=== PATIENT | female | born 1960 | race African-American/Black ===

== ENCOUNTER 2017-06-14 05:11 | Inpatient (IN) | payer OTHER ==
[2017-06-09 15:51] VITALS: BMI 24.1
[2017-06-14] MEDS ORDERED: THROMBIN (BOVINE) 5,000 UNIT VIAL TP ONE (07:25)
--- NOTE | 2017-06-14 07:51 | HP ---
HISTORY OF PRESENT ILLNESS- 57yo female c/o chronic c spine pain with radiculopathy down left upper extremity extending down left flank into left low back. she has been evaluated and treated by Dr Walters and has failed conservative treatment. Patient states she saw her pcp last week for pre op clearance. PMHX: DM, asthma, Hx of DVT when 30 + years ago. Denies hx of coagulopathy, bleeding disorder, seizure, stroke or heart attack Smoking: current everyday smoker Alcohol:social Drugs: Allergies: [place], NKDA REVIEW OF SYSTEMS CONSTITUTIONAL: Absent: fever, chills, diaphoresis, generalized weakness, malaise, loss of appetite, weight change HEENT: Pt wears glasses Absent: rhinorrhea, nasal congestion, throat pain, throat swelling, difficulty swallowing, CARDIOVASCULAR: Absent: chest pain, syncope, palpitations, irregular heart rate, lightheadedness , peripheral edema RESPIRATORY: wheezing and choughing at baseline Absent: shortness of breath, orthopnea, stridor, hemoptysis GASTROINTESTINAL: Absent: abdominal pain, abdominal distension, constipation, melena, hematochezia GENITOURINARY: Absent: dysuria, frequency, urgency, hesitancy, hematuria, genital pain MUSCULOSKELETAL: c-spine pain Absent: myalgia, arthralgia, joint swelling, SKIN: Absent: rash, itching, pallor HEMATOLOGIC/IMMUNOLOGIC: Absent: easy bleeding, easy bruising, lymphadenopathy, frequent infections ENDOCRINE: DM Absent: unexplained weight gain, unexplained weight loss, heat intolerance, cold intolerance NEUROLOGIC: Absent: headache, focal weakness or paresthesias, dizziness, unsteady gait, seizure, mental status changes, bladder or bowel incontinence PSYCHIATRIC: Absent: anxiety, depression, suicidal or homicidal ideation, hallucinations. PHYSICAL EXAMINATION: Vital Signs Temperature 97.7 F 06/14/17 06:57 Pulse Rate 98 H 06/14/17 06:57 Respiratory Rate 20 06/14/17 06:57 Blood Pressure 130/80 06/14/17 06:57 O2 Sat by Pulse Oximetry (%) 99 06/14/17 06:55 GENERAL: Awake, alert, and fully oriented, in no acute distress. HEAD: Normal with no signs of trauma. EYES: Pupils equal, round and reactive to light, sclera anicteric, conjunctiva clear. No lid lag. EARS, NOSE, THROAT: Ears normal, nares patent, NECK: limited range of motio 2/2 pain, supple without lymphadenopathy, JVD, or masses. LUNGS: Breath sounds equal, with Wheezing throughout b/l moreno. No accessory muscle use. HEART: Regular rate and rhythm, normal S1 and S2 ABDOMEN: Soft, nontender, not distended, MUSCULOSKELETAL: limited ROM at shoulder 2/2 pain 5/5 strength b/l upper extremities. Spine with ttp at midline diffusely and paraveterbral tenderness throughout L>R, no step off deformity No bony deformities or tenderness. No CVA tenderness. UPPER EXTREMITIES: 2+ pulses, warm, well-perfused. No cyanosis. No clubbing. No peripheral edema. LOWER EXTREMITIES: 2+ pulses, warm, well-perfused. No calf tenderness. No peripheral edema. NEUROLOGICAL: Cranial nerves II-XII intact. Normal speech. Normal gait. PSYCHIATRIC: Cooperative. Good eye contact. Appropriate mood and affect. SKIN: Warm, dry, normal turgor, no rashes or lesions noted, normal capillary refill. ASSESSMENT/PLAN: Imp: Cervical splondylitic myelopathy Plan: Diagnosis and treatment options discussed including R/B/A of surgical and non-surgical management. The patient would like to proceed with surgical intervention at this time. Confirmed consent will be obtained at bedside by Dr Walters. Visit type - Case Type Case Type: Scheduled Admission - Emergency Emergency Visit: No - New patient This patient is new to me today: Yes Date on this admission: 06/14/17
[2017-06-14] MEDS ORDERED: MIDAZOLAM HCL 2 MG/2 ML SINGLE DOSE VIAL ONE (08:01)
[2017-06-14] MEDS ORDERED: ROCURONIUM BROMIDE 50 MG/5 ML VIAL ONE (08:02)
[2017-06-14] MEDS ORDERED: ALBUTEROL SO4 18 GM HFA INHALER IH ONE (08:03)
[2017-06-14] MEDS ORDERED: SUCCINYLCHOLINE CHLORIDE 200 MG/10 ML VIAL ONE (08:04)
[2017-06-14] MEDS ORDERED: PROPOFOL 20 ML ONE ×2 (08:05)
[2017-06-14] MEDS ORDERED: LIDOCAINE HCL/PF 2% SDV 5ML VIAL ONE (08:06)
[2017-06-14] MEDS ORDERED: ceFAZolin SODIUM 1 GM VIAL IVPB ONE (08:30)
[2017-06-14] MEDS ORDERED: DEXAMETHASONE SOD PHOSPHATE 4 MG/1 ML VIAL ONE (08:52)
[2017-06-14] MEDS ORDERED: PHENYLEPHRINE HCL 10 MG/1 ML SINGLE DOSE VIAL ONE (09:06)
[2017-06-14] MEDS ORDERED: ceFAZolin SODIUM 1 GM VIAL ONE (09:06)
[2017-06-14] MEDS ORDERED: GLYCOPYRROLATE 0.2 MG/1 ML VIAL ONE ×2 (09:06→09:33)
[2017-06-14] MEDS ORDERED: HYDROmorphone HCL/PF 1 MG/ML VIAL (FOR PYXIS CHARGING ONLY) ONE (09:07)
[2017-06-14] MEDS ORDERED: SODIUM CHLORIDE 0.9% P/F 10 ML VIAL IJ ONE (09:17)
[2017-06-14] MEDS ORDERED: NEOSTIGMINE METHYLSULFATE 0.5 MG/ML - 10 ML MDV ONE (09:31)
[2017-06-14] MEDS ORDERED: ONDANSETRON 4 MG/2 ML VIAL ONE (09:33)
[2017-06-14] MEDS ORDERED: morphine CARPU-JECT 4 MG/1 ML DISP.SYRIN IVPUSH PRN ×2 (10:05→16:29)
[2017-06-14] MEDS ORDERED: ONDANSETRON 4 MG/2 ML VIAL IVPUSH PRN (10:11)
[2017-06-14] MEDS ORDERED: oxyCODONE HCL 5 MG TABLET PO PRN ×4 (10:11→18:00)
[2017-06-14] MEDS ORDERED: LACTATED RINGERS SOLUTION 1,000 ML IV SCH (10:15)
[2017-06-14] MEDS ORDERED: HYDROmorphone HCL CARPU-JECT 2 MG/1 ML DISP.SYRIN ONE (10:29)
[2017-06-14] MEDS: HYDROmorphone HCL CARPU-JECT 1 MG/1 ML DISP.SYRIN IVPUSH PRN ×2 (10:29→10:39)
[2017-06-14] MEDS ORDERED: SODIUM CHLORIDE 1,000 ML IV SCH ×2 (10:30→16:29)
[2017-06-14] MEDS ORDERED: PATIENT'S OWN MEDICATION (NON-FORMULARY) (Oxycodone Hcl [Oxycodone Hcl] 5 MG) PO PRN (16:29)
[2017-06-14] MEDS ORDERED: CEFAZOLIN (PRE-DOCKED) 50 ML IVPB SCH (16:30)
[2017-06-14] MEDS ORDERED: INSULIN DETEMIR 100 UNITS/ML MDV SQ SCH ×2 (16:30→17:15)
[2017-06-14] MEDS ORDERED: INSULIN GLARGINE HUM REC ANLOG 16 UNIT SQ SCH (16:30)
[2017-06-14] MEDS ORDERED: ZOLPIDEM TARTRATE 5 MG TABLET PO PRN ×2 (17:06→22:00)
[2017-06-14] MEDS: CEFAZOLIN 1 GM/D5W 50 ML IVPB SCH (17:36)
[2017-06-14] MEDS ORDERED: HEPARIN NA (PORCINE) 5,000 UNITS/ML 1ML VIAL SQ SCH (18:00)
[2017-06-14] MEDS ORDERED: HYDROmorphone HCL CARPU-JECT 1 MG/1 ML DISP.SYRIN IVPB PRN (19:45)
[2017-06-14] MEDS ORDERED: INSULIN (NOVOLOG) ASPART 100 UNITS/ML 10ML VIAL ONE (21:01)
[2017-06-14] MEDS ORDERED: HYDROmorphone HCL CARPU-JECT 2 MG/1 ML DISP.SYRIN IVPB PRN (21:02)
[2017-06-14] MEDS: HEPARIN NA (PORCINE) 5,000 UNITS/ML 1ML VIAL SQ SCH (21:07)
[2017-06-14] MEDS: BUDESONIDE/FORMETEROL FUMARATE 80/4.5 mcg INHALER IH SCH (21:08)
[2017-06-14] MEDS ORDERED: PATIENT'S OWN MEDICATION (NON-FORMULARY) (Zolpidem Tartrate [Ambien] 10 MG) PO SCH (22:00)
[2017-06-14] MEDS ORDERED: BUDESONIDE/FORMETEROL FUMARATE 80/4.5 mcg INHALER IH SCH (22:00)
[2017-06-14] MEDS ORDERED: INSULIN SLIDING SCALE (NOVOLOG) 1 VIAL SQ SCH ×2 (22:00)
[2017-06-15] MEDS: CEFAZOLIN 1 GM/D5W 50 ML IVPB SCH (00:41)
[2017-06-15] MEDS: oxyCODONE HCL 5 MG TABLET PO PRN ×2 (03:02→08:04)
[2017-06-15] MEDS: HEPARIN NA (PORCINE) 5,000 UNITS/ML 1ML VIAL SQ SCH (06:00)
[2017-06-15] MEDS ORDERED: metFORMIN HCL 500 MG TABLET (FP) PO SCH ×2 (07:00→10:00)
--- NOTE | 2017-06-15 08:15 | PN ---
Progress Note (short form) - Note Progress Note: Pt tolerating regular food last pm, oob and ambulating. Pain to upper back improved and tingling in hands. Vital Signs Period Temp Pulse Resp BP Sys/Lombardo Pulse Ox Last 24 Hr 97.5 F-98.8 F 75-118 10-22 133-167/58-89 96-100 ALCON-20ml CV: RRR Lungs: CTA b/l Neck: supple, dressing c/d/i, no eechymosis or masses noted. ALCON removed intact, steri strips applied to ALCON removal site. 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 Upper extremity 5/5 b/l. A/P: 57 yo female s/p C5-6 disectomy with fusion, POD#1 doing well plan for discharge today D/w the patient the need to keep her incision dry and covered, wear cerivcal collar 23/24 hours Follow up with Dr. Walters/Kalli next week
[2017-06-15 09:12] VITALS: BP 123/81; PULSE 110; TEMP 97.7
[2017-06-15] MEDS: BUDESONIDE/FORMETEROL FUMARATE 80/4.5 mcg INHALER IH SCH (09:12)
[2017-06-15] MEDS ORDERED: MENTHOL TP SCH ×2 (10:00)
[2017-06-15] MEDS ORDERED: METHYL SALICYLATE TP SCH ×2 (10:00)
[2017-06-15] MEDS ORDERED: [UNRECOGNIZED DRUG - OTHER] TP SCH ×2 (10:00)
[2017-06-15] MEDS ORDERED: PATIENT'S OWN MEDICATION (NON-FORMULARY) (Metformin Hcl [Glucophage] 1,000 MG) PO SCH (10:00)
--- NOTE | 2017-06-15 12:05 | PN ---
Progress Note, Physician Chief Complaint: S/p C4-6 cervical discectomy under general anesthesia post op day one History of Present Illness: Post op day one - Objective Vital Signs: Vital Signs Temperature 97.7 F 06/15/17 09:00 Pulse Rate 110 H 06/15/17 09:00 Respiratory Rate 22 06/15/17 09:00 Blood Pressure 123/81 06/15/17 09:00 O2 Sat by Pulse Oximetry (%) 98 06/14/17 21:00 Constitutional: Yes: Well Nourished Cardiovascular: Yes: WNL Respiratory: Yes: WNL Gastrointestinal: Yes: WNL Assessment/Plan Complaining of mild throat pain, no other adverse effect of anesthetic, patient being discharged today, dept of anesthesia will sign off care at this time.
[2017-06-15] MEDS ORDERED: INSULIN DETEMIR 100 UNITS/ML MDV SQ SCH (16:30)
== END 2017-06-15 11:35 | disposition home or self-care (01) | DRG 473 ==
LOC: JSAMEDAYSX 05:11 → EDSTATUS 08:00 → J6S 15:05
PROVIDERS: ADMIT Neurological Surgery; ATTEND Neurological Surgery
PROC: 0RB30ZZ Excision of Cervical Vertebral Disc, Open Approach (ICD-10-PCS; 2017-06-14)
PROC: BR1 Imaging, Axial Skeleton, Except Skull and Facial Bones, Fluoroscopy (ICD-10-PCS; 2017-06-14)
PROC: 0RG10A0 Fusion of Cervical Vertebral Joint with Interbody Fusion Device, Anterior Approach, Anterior Column, Open Approach (ICD-10-PCS; principal; 2017-06-14 08:00)
DX: M50.022 Cervical disc disorder at C5-C6 level with myelopathy (principal); M50.122 Cervical disc disorder at C5-C6 level with radiculopathy; M40.292 Other kyphosis, cervical region; E11.9 Type 2 diabetes mellitus without complications; J45.909 Unspecified asthma, uncomplicated; F17.210 Nicotine dependence, cigarettes, uncomplicated; Z86.718 Personal history of other venous thrombosis and embolism; Z79.4 Long term (current) use of insulin
CPT/HCPCS: 72125-TC; 76000-TC; 94010; 94760; 97116-GP; 97161-GP; J1644

== ENCOUNTER 2018-11-28 08:58 | Day surgery (SDC) | payer OTHER ==
[2018-11-27 08:59] VITALS: BMI 24.1
[~2018-11-28 08:58] MED LIST: LIDOCAINE HCL 1%, 10 MG/ML (20ML VIAL) NR ONE
[2018-11-28 09:19] VITALS: TEMP 97.8
[2018-11-28] MEDS ORDERED: PROPOFOL 20 ML ONE ×2 (10:21)
[2018-11-28] MEDS ORDERED: LIDOCAINE HCL/PF 2% SDV 5ML VIAL ONE (10:21)
[2018-11-28] MEDS ORDERED: BETAMET ACET/BETAMET NA PH 30 MG/5 ML VIAL ONE (10:23)
[2018-11-28] MEDS ORDERED: BUPIVACAINE HCL/PF 0.25% (2.5MG/ML) 10 ML VIAL ONE (10:23)
[2018-11-28] MEDS ORDERED: MIDAZOLAM HCL 2 MG/2 ML SINGLE DOSE VIAL ONE (10:25)
[2018-11-28] MEDS ORDERED: BETAMET ACET/BETAMET NA PH 30 MG/5 ML VIAL NR ONE (10:42)
[2018-11-28] MEDS ORDERED: IOHEXOL 180 MG/1 ML ML IJ ONE (10:42)
[2018-11-28] MEDS ORDERED: BUPIVACAINE HCL/PF 0.25% (2.5MG/ML) 10 ML VIAL IJ ONE (10:42)
[2018-11-28] MEDS ORDERED: LIDOCAINE HCL 1%, 10 MG/ML (20ML VIAL) NR ONE (10:42)
[2018-11-28] MEDS ORDERED: BENZOIN TINCTURE SWABSTICK TP ONE (10:45)
[2018-11-28 12:19] VITALS: BP 117/90; PULSE 80
== END 2018-11-28 12:15 | disposition home or self-care (01) ==
LOC: JASU-SURG 08:58
PROVIDERS: ATTEND Physical Medicine & Rehabilitation
PROC: 3E0T33Z Introduction of Anti-inflammatory into Peripheral Nerves and Plexi, Percutaneous Approach (ICD-10-PCS; 2018-11-28)
PROC: 3E0T3BZ Introduction of Anesthetic Agent into Peripheral Nerves and Plexi, Percutaneous Approach (ICD-10-PCS; principal; 2018-11-28 09:30)
DX: M46.96 Unspecified inflammatory spondylopathy, lumbar region (principal); M54.5 Low back pain; E11.9 Type 2 diabetes mellitus without complications; Z79.84 Long term (current) use of oral hypoglycemic drugs
CPT/HCPCS: 82962

== ENCOUNTER 2019-09-28 09:35 | Day surgery (SDC) | payer OTHER ==
[2019-09-27 17:07] VITALS: BMI 24.7
[2019-09-28 10:49] VITALS: BP 135/75; PULSE 106; TEMP 98.4
== END 2019-09-28 10:55 | disposition home or self-care (01) ==
LOC: JASU-SURG 09:35
PROVIDERS: ATTEND Physical Medicine & Rehabilitation
DX: Z53.8 Procedure and treatment not carried out for other reasons (principal)
CPT/HCPCS: 82962

== ENCOUNTER 2020-04-29 04:45 | Day surgery (SDC) | payer OTHER ==
[2020-04-28 13:08] VITALS: BMI 23.8
[2020-04-29] MEDS ORDERED: BUPIVACAINE HCL/PF 0.25% (2.5MG/ML) 10 ML VIAL ONE (08:57)
[2020-04-29] MEDS ORDERED: BETAMET ACET/BETAMET NA PH 30 MG/5 ML VIAL ONE (08:57)
[2020-04-29] MEDS ORDERED: LIDOCAINE HCL 1%, 10 MG/ML (20ML VIAL) ONE ×2 (08:57→12:59)
[2020-04-29 09:49] VITALS: TEMP 97.5
[2020-04-29] MEDS ORDERED: PROPOFOL 20 ML ONE (13:11)
[2020-04-29] MEDS ORDERED: ceFAZolin SODIUM 1 GM VIAL IVPB ONE (13:21)
[2020-04-29] MEDS ORDERED: IOHEXOL 180 MG/1 ML ML IJ ONE (13:30)
[2020-04-29] MEDS ORDERED: LIDOCAINE HCL 1%, 10 MG/ML (20ML VIAL) NR ONE (13:30)
[2020-04-29] MEDS ORDERED: BUPIVACAINE HCL/PF 0.5% (5 MG/ML) 30 ML VIAL IJ ONE (13:30)
[2020-04-29 14:36] VITALS: BP 155/84; PULSE 94
--- NOTE | 2020-04-30 05:46 | PROC ---
Procedure Note Procedure: Date of service: 04/29/2020 Preoperative Diagnosis: Low back pain and lumbar radiculopathy on right Postoperative Diagnosis: Same Procedure Performed: Lumbar Epidural Steroid Injection (LESI) on Right L4-5 with dye under Fluoroscopy, NO STEROID Anesthesia: Local / MAC Anesthesiologist: Procedure: I discussed with the patient in detail about the risks, benefits, and alternatives to treatment not only limited to infection, headache, numbness, weakness, and injury to nerves, blood vessels and muscles. The patient understood, agreed and signed the written consent. The patient was placed in the prone position with the head, abdomen and legs supported with the pillows. The lumbosacral area was prepped and draped with Betadine times three in a sterile fashion. Lumbar vertebrae were identified under the C-arm. At L4-5 level on the right side, 3 ml of 1 % Lidocaine was infiltrated into the skin and subcutaneous tissue. A 3 inch, #20 gauge Tuohy needle was advanced to the epidural space with loss of resistance technique under fluoroscopic guidance. Aspiration was negative for cerebrospinal fluid and blood. 2ml of Omnipaque (radio-opaque dye) was injected to confirm the tip of the needle into epidural space and spread of dye. There was no CSF or vascular spread. The spread of dye was noted cranially and caudally on epidurogram. Aspiration was done again which was negative. A solution of 2 ml of 0.5% Marcaine and 5 ml of preservative-free Normal Saline and a total of 7 ml was injected slowly. While Tuohy needle was withdrawn 2.0 ml of 1 % Lidocaine was infiltrated. Bleeding was checked. Betadine was wiped off. A sterile bandage was placed. The patient tolerated the procedure well. There were no immediate complications. The patient was transferred to the recovery room. The patient was observed for some time and discharged as per ASU criteria. The patient was told to apply ice at the injection site. Follow up appointment was given and also call my office at [phone]. If there is any problem, call my office or report to Emergency Room. Raoul Mahan M.D. Note : The patient DM and Blood sugar was high , so steroid was not given.
== END 2020-04-29 14:30 | disposition home or self-care (01) ==
LOC: JASU-SURG 04:45
PROVIDERS: ATTEND Physical Medicine & Rehabilitation
PROC: 3E0R3BZ Introduction of Anesthetic Agent into Spinal Canal, Percutaneous Approach (ICD-10-PCS; principal; 2020-04-29 09:30)
PROC: B01BYZZ Fluoroscopy of Spinal Cord using Other Contrast (ICD-10-PCS; 2020-04-29 09:30)
DX: M54.16 Radiculopathy, lumbar region (principal); M54.5 Low back pain
CPT/HCPCS: 76000-TC-FY; 82962

== ENCOUNTER 2022-04-26 04:18 | Day surgery (SDC) | payer OTHER ==
[2022-04-23 10:10] VITALS: BMI 22.8
[2022-04-26] MEDS ORDERED: BUPIVACAINE HCL/PF 0.25% (2.5MG/ML) 10 ML VIAL ONE (07:42)
[2022-04-26] MEDS ORDERED: LIDOCAINE HCL/PF 1% SDV 5ML VIAL ONE (07:42)
[2022-04-26] MEDS ORDERED: DEXAMETHASONE SOD PHOSPHATE 10 MG/1 ML VIAL ONE (07:43)
[2022-04-26] MEDS ORDERED: MIDAZOLAM HCL 2 MG/2 ML SINGLE DOSE VIAL ONE (11:20)
[2022-04-26] MEDS ORDERED: BUPIVACAINE HCL/PF 0.25% (2.5MG/ML) 10 ML VIAL IJ ONE (11:37)
[2022-04-26] MEDS ORDERED: IOHEXOL 180 MG/1 ML ML IJ ONE (11:38)
[2022-04-26] MEDS ORDERED: DEXAMETHASONE SOD PHOSPHATE 10 MG/1 ML VIAL IVPUSH ONE (11:39)
[2022-04-26] MEDS ORDERED: SODIUM CHLORIDE 0.9% P/F 10 ML VIAL IJ ONE (11:49)
[2022-04-26 12:30] VITALS: RESP 18; TEMP 98.4
[2022-04-26 12:34] VITALS: BP 136/75; PULSE 77
== END 2022-04-26 13:30 | disposition home or self-care (01) ==
LOC: JASU-SURG 04:18
PROVIDERS: ATTEND Physical Medicine & Rehabilitation
PROC: 3E0R3BZ Introduction of Anesthetic Agent into Spinal Canal, Percutaneous Approach (ICD-10-PCS; 2022-04-26)
PROC: B01BYZZ Fluoroscopy of Spinal Cord using Other Contrast (ICD-10-PCS; 2022-04-26)
PROC: 3E0R33Z Introduction of Anti-inflammatory into Spinal Canal, Percutaneous Approach (ICD-10-PCS; principal; 2022-04-26 10:00)
DX: M54.16 Radiculopathy, lumbar region (principal); M54.50 Low back pain, unspecified
CPT/HCPCS: 82962; J1100

== ENCOUNTER 2022-07-19 05:31 | Day surgery (SDC) | payer OTHER ==
[2022-07-16 14:56] VITALS: BMI 22.8
[~2022-07-19 05:31] MED LIST changes: +BUPIVACAINE HCL/PF 0.25% (2.5MG/ML) 10 ML VIAL IJ ONE; +DEXAMETHASONE SOD PHOSPHATE 10 MG/1 ML VIAL IVPUSH ONE; +IOHEXOL 180 MG/1 ML ML IJ ONE; +LIDOCAINE HCL 1% PRESERVATIVE FREE - 30ML VIAL IJ ONE; -LIDOCAINE HCL 1%, 10 MG/ML (20ML VIAL) NR ONE
[2022-07-19 10:15] VITALS: RESP 18
[2022-07-19] MEDS ORDERED: LIDOCAINE HCL/PF 1% SDV 5ML VIAL ONE (10:20)
[2022-07-19] MEDS ORDERED: BUPIVACAINE HCL/PF 0.25% (2.5MG/ML) 10 ML VIAL ONE (10:20)
[2022-07-19] MEDS ORDERED: DEXAMETHASONE SOD PHOSPHATE 10 MG/1 ML VIAL ONE (10:20)
[2022-07-19] MEDS ORDERED: MIDAZOLAM HCL 2 MG/2 ML SINGLE DOSE VIAL ONE (11:02)
[2022-07-19] MEDS ORDERED: FENTANYL CITRATE/PF 50 MCG/ML VIAL ONE (11:05)
[2022-07-19] MEDS ORDERED: LIDOCAINE HCL 1% PRESERVATIVE FREE - 30ML VIAL IJ ONE (11:13)
[2022-07-19] MEDS ORDERED: DEXAMETHASONE SOD PHOSPHATE 10 MG/1 ML VIAL IVPUSH ONE (11:15)
[2022-07-19] MEDS ORDERED: IOHEXOL 180 MG/1 ML ML IJ ONE (11:15)
[2022-07-19] MEDS ORDERED: BUPIVACAINE HCL/PF 0.25% (2.5MG/ML) 10 ML VIAL IJ ONE (11:15)
[2022-07-19 12:51] VITALS: PULSE 90
[2022-07-19 14:25] VITALS: BP 102/63
[2022-07-19 14:31] VITALS: TEMP 97.6
== END 2022-07-19 13:20 | disposition home or self-care (01) ==
LOC: JASU-SURG 05:31
PROVIDERS: ATTEND Physical Medicine & Rehabilitation
PROC: 3E0R33Z Introduction of Anti-inflammatory into Spinal Canal, Percutaneous Approach (ICD-10-PCS; 2022-07-19)
PROC: 3E0R3BZ Introduction of Anesthetic Agent into Spinal Canal, Percutaneous Approach (ICD-10-PCS; principal; 2022-07-19 09:30)
DX: M54.16 Radiculopathy, lumbar region (principal)
CPT/HCPCS: 76000-TC-FY; 82962; J1100

== ENCOUNTER 2024-01-16 04:10 | Day surgery (SDC) | payer OTHER ==
[2024-01-12 09:39] VITALS: BMI 23.8
[2024-01-16] MEDS: BUPIVACAINE HCL/PF 0.25% (2.5MG/ML) 10 ML VIAL IJ ONE
[2024-01-16] MEDS: LIDOCAINE HCL 1% PRESERVATIVE FREE - 30ML VIAL IJ ONE
[2024-01-16] MEDS: DEXAMETHASONE SOD PHOSPHATE 10 MG/1 ML VIAL IVPUSH ONE
[2024-01-16] MEDS: IOHEXOL 180 MG/1 ML ML IJ ONE
[2024-01-16] MEDS ORDERED: DEXTROSE 50%-WATER 25 GM/50 ML DISP.SYRIN ONE (10:26)
[2024-01-16] MEDS: DEXTROSE 50%-WATER 25 GM/50 ML DISP.SYRIN IVPUSH ONE (10:30)
[2024-01-16 10:59] VITALS: BP 166/84; PULSE 97; RESP 20; TEMP 97
== END 2024-01-16 11:59 | disposition home or self-care (01) ==
LOC: JASU-SURG 04:10
PROVIDERS: ATTEND Physical Medicine & Rehabilitation
PROC: 3E0R33Z Introduction of Anti-inflammatory into Spinal Canal, Percutaneous Approach (ICD-10-PCS; principal; 2024-01-16)
DX: Z53.09 Procedure and treatment not carried out because of other contraindication (principal)
CPT/HCPCS: 82962; J1100

== ENCOUNTER 2024-02-13 04:18 | Day surgery (SDC) | payer OTHER ==
[2024-02-09 11:51] VITALS: BMI 23.8
[2024-02-13] MEDS ORDERED: MIDAZOLAM HCL 2 MG/2 ML SINGLE DOSE VIAL ONE (13:52)
[2024-02-13] MEDS ORDERED: FENTANYL CITRATE/PF 50 MCG/ML VIAL ONE (13:52)
[2024-02-13] MEDS ORDERED: LABETALOL HCL 20 MG/4 ML VIAL ONE (13:59)
[2024-02-13] MEDS: LIDOCAINE HCL 1% PRESERVATIVE FREE - 30ML VIAL IJ ONE (14:03)
[2024-02-13] MEDS: IOHEXOL 180 MG/1 ML ML IJ ONE (14:04)
[2024-02-13] MEDS: DEXAMETHASONE SOD PHOSPHATE 10 MG/1 ML VIAL IVPUSH ONE (14:04)
[2024-02-13] MEDS: BUPIVACAINE HCL/PF 0.25% (2.5MG/ML) 10 ML VIAL IJ ONE (14:04)
[2024-02-13 14:26] VITALS: RESP 18
[2024-02-13 15:41] VITALS: BP 160/92; PULSE 92; TEMP 97.1
== END 2024-02-13 15:43 | disposition home or self-care (01) ==
LOC: JASU-SURG 04:18
PROVIDERS: ATTEND Physical Medicine & Rehabilitation
PROC: 3E0R3BZ Introduction of Anesthetic Agent into Spinal Canal, Percutaneous Approach (ICD-10-PCS; 2024-02-13)
PROC: 3E0R33Z Introduction of Anti-inflammatory into Spinal Canal, Percutaneous Approach (ICD-10-PCS; principal; 2024-02-13 12:30)
DX: M54.16 Radiculopathy, lumbar region (principal); M54.50 Low back pain, unspecified
CPT/HCPCS: 76000-TC-FY; 82962; J1100

== ENCOUNTER 2024-09-25 04:11 | Day surgery (SDC) | payer OTHER ==
[2024-09-21 15:15] VITALS: BMI 23.8
[2024-09-25 09:59] VITALS: RESP 20
[2024-09-25] MEDS ORDERED: SODIUM CHLORIDE 0.9% P/F 10 ML VIAL IJ ONE (10:35)
[2024-09-25] MEDS ORDERED: BUPIVACAINE HCL/PF 0.25% (2.5MG/ML) 10 ML VIAL ONE (10:37)
[2024-09-25] MEDS ORDERED: PROPOFOL 20 ML ONE (10:44)
[2024-09-25] MEDS ORDERED: MIDAZOLAM HCL 2 MG/2 ML SINGLE DOSE VIAL ONE (10:44)
[2024-09-25] MEDS: LIDOCAINE HCL 1% PRESERVATIVE FREE - 30ML VIAL IJ ONE ×2 (10:51)
[2024-09-25] MEDS: IOHEXOL 180 MG/1 ML ML IJ ONE ×2 (10:52)
[2024-09-25] MEDS: BUPIVACAINE HCL/PF 0.5% (5 MG/ML) 30 ML VIAL IJ ONE ×3 (10:53→10:56)
[2024-09-25] MEDS: DEXAMETHASONE SOD PHOSPHATE 10 MG/1 ML VIAL IVPUSH ONE ×3 (10:53→10:56)
[2024-09-25 11:29] VITALS: BP 128/77; PULSE 96; TEMP 97.8
== END 2024-09-25 12:20 | disposition home or self-care (01) ==
LOC: JASU-SURG 04:11
PROVIDERS: ATTEND Physical Medicine & Rehabilitation
PROC: 3E0T33Z Introduction of Anti-inflammatory into Peripheral Nerves and Plexi, Percutaneous Approach (ICD-10-PCS; 2024-09-25)
PROC: 3E0T3BZ Introduction of Anesthetic Agent into Peripheral Nerves and Plexi, Percutaneous Approach (ICD-10-PCS; principal; 2024-09-25 10:30)
DX: M47.817 Spondylosis without myelopathy or radiculopathy, lumbosacral region (principal)
CPT/HCPCS: 76000-TC-FY; 82962; J1100

== ENCOUNTER 2025-05-07 06:04 | Day surgery (SDC) | payer OTHER ==
[2025-05-03 09:28] VITALS: BMI 23.8
[2025-05-07 10:07] VITALS: TEMP 98.2
[2025-05-07] MEDS ORDERED: MIDAZOLAM HCL 2 MG/2 ML SINGLE DOSE VIAL ONE (12:56)
[2025-05-07] MEDS: LIDOCAINE HCL 1% PRESERVATIVE FREE - 30ML VIAL IJ ONE (13:04)
[2025-05-07] MEDS: IOHEXOL 180 MG/1 ML ML IJ ONE (13:06)
[2025-05-07] MEDS: BUPIVACAINE HCL/PF 0.5% (5MG/ML) 10 ML VIAL IJ ONE (13:06)
[2025-05-07] MEDS: DEXAMETHASONE SOD PHOSPHATE 10 MG/1 ML VIAL IVPUSH ONE (13:07)
[2025-05-07 13:31] VITALS: BP 138/78; PULSE 92; RESP 20
== END 2025-05-07 14:07 | disposition home or self-care (01) ==
LOC: JASU-SURG 06:04
PROVIDERS: ATTEND Physical Medicine & Rehabilitation
PROC: 3E0T3BZ Introduction of Anesthetic Agent into Peripheral Nerves and Plexi, Percutaneous Approach (ICD-10-PCS; principal; 2025-05-07 08:30)
DX: M47.816 Spondylosis without myelopathy or radiculopathy, lumbar region (principal)
CPT/HCPCS: 76000-TC-FY; 82962; J1100